=== PATIENT | female | born 1960 | race African-American/Black ===

== ENCOUNTER 2016-12-12 14:28 | Emergency (ER) | payer OTHER ==
[~2016-12-12] VITALS: Ht 188 cm; Wt 91.0 kg
[2016-12-12] MEDS ORDERED: LOV80 SQ (14:36)
[2016-12-12] MEDS ORDERED: WARF4TAB40 PO (14:36)
[2016-12-12 15:10] LABS: BASOPHILS % 1.3 % (0.0-2.0); EOSINOPHILS % 4.6 % (0.0-5.0); HEMATOCRIT. 36.3 % (36.0-48.0); LYMPHOCYTES % 56.2 % (20.0-50.0); MEAN CORPUSCULAR HEMOGLOBIN 28.6 pg (28.0-32.0); MEAN CORPUSCULAR VOLUME 86.7 fL (81.0-99.0); MEAN PLATELET VOLUME 8.8 fl (7.4-10.4); MONOCYTES % 10.4 % (2.0-8.0); NEUTROPHILS % 27.5 % (40.0-76.0); PLATELET 214 x1000/uL (130-400); RED BLOOD CELL COUNT 4.19 mill/uL (4.2-5.4); RED CELL DISTRIBUTION WIDTH 15.4 % (11.6-14.6)
[2016-12-12 15:14] LABS: INR 1.2; PARTIAL THROMBOPLASTIN TIME 28.5 sec (23.4-31.0); PROTHROMBIN TIME 12.8 sec (9.4-11.6)
[2016-12-12 15:19] LABS: BG BASE EXCESS 0.9 mmol/L (-2.0-2.0); BG CARBOXYHEMOGLOBIN 0.3 % (0.5-1.5); BG DEOXYHEMOGLOBIN 11.8 % (0.0-5.0); BG FRACTION INSPIRED OXYGEN 50; BG HCO3 ACT 25.4 mmol/L (22.0-26.0); BG METHEMOGLOBIN 0.1 % (0.0-1.5); BG OXYGEN SATURATION 88.2 % (92.0-98.5); BG OXYHEMOGLOBIN 87.8 % (94.0-97.0); BG PCO2 40.1 mmHg (35.0-45.0); BG PO2 54.4 mmHg (75.0-100.0); BG SAMPLE SITE RIGHT RADIAL; BG TOTAL HEMOGLOBIN 12.8 g/dL (12.0-18.0); BG VENT MODE MASK - VENTI
[2016-12-12 15:22] LABS: CARBON DIOXIDE 25 mEq/L (21-32); CHLORIDE 105 mEq/L (98-107); TROPONIN I < 0.02 ng/mL (0.00-0.04)
[2016-12-12 20:48] VITALS: BP 121/80
== END 2016-12-12 21:15 | disposition short-term general hospital (02) ==
LOC: ER 15:20
DX: R09.02 Hypoxemia (principal); R04.2 Hemoptysis; J98.11 Atelectasis; I71.9 Aortic aneurysm of unspecified site, without rupture; Z95.4 Presence of other heart-valve replacement; Z88.8 Allergy status to other drugs, medicaments and biological substances
CPT/HCPCS: 36415; 36600; 71010; 71250; 80053; 82375; 82805; 83880; 84484; 85025; 85610; 85730; 93005; 99291; Z7610